=== PATIENT | female | born 1980 | race African-American/Black ===

== ENCOUNTER 2017-03-03 03:35 | Inpatient (IN) | payer OTHER, MEDICAID ==
[2017-03-03] VITALS (27 sets, daily range): BP systolic 109–141; BP diastolic 58–96
[~2017-03-03] VITALS: Ht 165.1 cm; Wt 63.0 kg
[2017-03-03] MEDS ORDERED: ACETAMINOPHEN 500MG TABLET ONE (03:51)
[2017-03-03] MEDS ORDERED: SODIUM CHLORIDE 0.9% 1,000 ML IV ONE (03:52)
[2017-03-03] MEDS ORDERED: ACETAMINOPHEN 325MG TABLET PO ONE (04:00)
[2017-03-03 04:18] LABS: HEMATOCRIT 35.9 % (36.0-48.0); HEMOGLOBIN 11.4 g/dL (12.0-16.0); MEAN CORPUSCULAR HEMOGLOBIN 22.4 pg (28.0-32.0); MEAN CORPUSCULAR VOLUME 70.5 fL (81.0-99.0); PLATELET 189 x1000/uL (130-400); RED CELL DISTRIBUTION WIDTH 14.4 % (11.6-14.6)
[2017-03-03 04:26] LABS: CARBON DIOXIDE 25 mEq/L (21-32); CHLORIDE 101 mEq/L (98-107)
[2017-03-03 04:34] LABS: CLARITY URINE CLOUDY (CLEAR); COLOR URINE DARK YELLOW (YELLOW); GLUCOSE URINE NEGATIVE (NEGATIVE); KETONES URINE 1+ (NEGATIVE); LEUKOCYTE ESTERASE URINE 2+ (NEGATIVE); NITRITE URINE NEGATIVE (NEGATIVE); OCCULT BLOOD URINE 1+ (NEGATIVE); PH URINE >=9.0 (4.5-8.0); PROTEIN URINE 2+ (NEGATIVE); SPECIFIC GRAVITY URINE 1.029 (1.005-1.030)
[2017-03-03] MEDS ORDERED: CEFTRIAXONE 2 G PREMIX 50 ML IV ONE (05:30)
[2017-03-03] MEDS ORDERED: VANCOMYCIN 1,250 MG in DEXT 5% WATER 250 ML IV SCH (06:30)
[2017-03-03 06:54] LABS: HCG SCREEN NEGATIVE
[2017-03-03] MEDS ORDERED: DIPHENHYDRAMINE 50MG/ML VIAL IV ONE (07:00)
[2017-03-03] MEDS ORDERED: IPRATROPIUM/ALBUTEROL 0.5-3(2.5)MG/3ML NEB INH PRN (09:30)
[2017-03-03] MEDS ORDERED: NICARDIPINE 50 MG in SODIUM CHLORIDE 0.9% 230 ML IV PRN (09:30)
[2017-03-03] MEDS ORDERED: DIPHENHYDRAMINE 50MG/ML VIAL IV PRN (09:30)
[2017-03-03] MEDS ORDERED: ACETAMINOPHEN 650MG SUPP PR PRN (09:30)
[2017-03-03] MEDS: ONDANSETRON HCL 4MG/2ML VIAL IV PRN (09:35)
[2017-03-03] MEDS: DEXT 5%/LACTATED RINGERS 1,000 ML IV SCH (09:45)
[2017-03-03] MEDS ORDERED: NICARDIPINE 100 MG in SODIUM CHLORIDE 0.9% 60 ML IV PRN (10:00)
[2017-03-03] MEDS ORDERED: CEFTRIAXONE 1 G PREMIX 50 ML IV SCH (10:30)
[2017-03-03] MEDS ORDERED: IOHEXOL-350 100 ML BOTTLE ONE (10:53)
[2017-03-03] MEDS ORDERED: SODIUM CHLORIDE 0.9% 10ML VIAL ONE (10:53)
[2017-03-03] MEDS: PHENYTOIN SODIUM 100MG/2ML VIAL IV SCH ×2 (13:27→21:56)
[2017-03-03] MEDS ORDERED: IPRATROPIUM BROMIDE (0.02%) 0.5MG/2.5ML NEB HHN PRN (21:00)
[2017-03-04] VITALS (25 sets, daily range): BP systolic 12–143; BP diastolic 33–91
[2017-03-04] MEDS: MORPHINE SULFATE 2 MG/ML CPJ (NOT FOR IM USE) IV PRN ×4 (03:18→22:25)
[2017-03-04] MEDS: DEXT 5%/LACTATED RINGERS 1,000 ML IV SCH (03:18)
[2017-03-04 05:51] LABS: HEMATOCRIT. 33.1 % (36.0-48.0); HEMOGLOBIN. 10.3 g/dL (12.0-16.0); MEAN CORPUSCULAR HEMOGLOBIN 21.9 pg (28.0-32.0); MEAN CORPUSCULAR VOLUME 70.3 fL (81.0-99.0); MEAN PLATELET VOLUME 9.9 fl (7.4-10.4); PLATELET 183 x1000/uL (130-400); RED CELL DISTRIBUTION WIDTH 14.5 % (11.6-14.6)
[2017-03-04] MEDS: PHENYTOIN SODIUM 100MG/2ML VIAL IV SCH (06:43)
[2017-03-04 06:45] LABS: CARBON DIOXIDE 28 mEq/L (21-32); CHLORIDE 106 mEq/L (98-107); PHOSPHORUS 2.4 mg/dL (2.5-4.9)
[2017-03-04] MEDS: CEFTRIAXONE 1 G PREMIX 50 ML IV SCH (09:17)
[2017-03-04] MEDS: PANTOPRAZOLE SODIUM 40 MG/VIAL IV SCH (09:17)
[2017-03-04] MEDS: ONDANSETRON HCL 4MG/2ML VIAL IV PRN (10:24)
[2017-03-04 11:51] LABS: *AMPHETAMINES SCREEN URINE NEGATIVE (NEGATIVE); *BARBITURATES SCREEN URINE NEGATIVE (NEGATIVE); *BENZODIAZEPINES SCREEN URINE NEGATIVE (NEGATIVE); *COCAINE SCREEN URINE NEGATIVE (NEGATIVE); METHADONE URINE SCREEN NEGATIVE (NEGATIVE); OPIATES URINE SCREEN NEGATIVE (NEGATIVE); PHENCYCLIDINE URINE SCREEN NEGATIVE (NEGATIVE)
[2017-03-04 11:58] LABS: CANNABINOID URINE SCREEN PRESUMTIVE POSITIVE (NEGATIVE)
[2017-03-04 12:04] LABS: ATYPICAL LYMPHOCYTES 1; PLATELET ESTIMATE NORMAL
[2017-03-04] MEDS: PHENYTOIN SODIUM EXTENDED 100MG CAPSULE PO SCH ×2 (15:12→21:01)
[2017-03-04] MEDS: HYDROCODONE/ACETAMINOPHEN 5/325MG TABLET PO PRN (18:12)
[2017-03-05] VITALS (13 sets, daily range): BP systolic 99–137; BP diastolic 40–89
[2017-03-05] MEDS: HYDROCODONE/ACETAMINOPHEN 5/325MG TABLET PO PRN ×3 (03:38→14:49)
[2017-03-05 05:45] LABS: HEMATOCRIT. 31.2 % (36.0-48.0); HEMOGLOBIN. 9.8 g/dL (12.0-16.0); MEAN CORPUSCULAR HEMOGLOBIN 21.9 pg (28.0-32.0); MEAN CORPUSCULAR VOLUME 69.6 fL (81.0-99.0); MEAN PLATELET VOLUME 9.9 fl (7.4-10.4); PLATELET 180 x1000/uL (130-400); RED BLOOD CELL COUNT 4.49 mill/uL (4.2-5.4); RED CELL DISTRIBUTION WIDTH 14.5 % (11.6-14.6)
[2017-03-05 05:53] LABS: CARBON DIOXIDE 28 mEq/L (21-32); CHLORIDE 101 mEq/L (98-107)
[2017-03-05] MEDS: PHENYTOIN SODIUM EXTENDED 100MG CAPSULE PO SCH ×3 (05:54→21:44)
[2017-03-05] MEDS: PANTOPRAZOLE SODIUM 40 MG/VIAL IV SCH (08:01)
[2017-03-05] MEDS: CEFTRIAXONE 1 G PREMIX 50 ML IV SCH (08:01)
[2017-03-05 08:13] LABS: ATYPICAL LYMPHOCYTES 1
[2017-03-05 08:14] LABS: PLATELET ESTIMATE NORMAL
[2017-03-05] MEDS ORDERED: FLUCONAZOLE 150MG TABLET PO SCH (15:00)
[2017-03-05 16:14] LABS: CLARITY URINE CLEAR (CLEAR); COLOR URINE DARK YELLOW (YELLOW); GLUCOSE URINE NEGATIVE (NEGATIVE); KETONES URINE 1+ (NEGATIVE); LEUKOCYTE ESTERASE URINE 1+ (NEGATIVE); NITRITE URINE NEGATIVE (NEGATIVE); OCCULT BLOOD URINE TRACE (NEGATIVE); PH URINE 6.5 (4.5-8.0); PROTEIN URINE 1+ (NEGATIVE); SPECIFIC GRAVITY URINE 1.024 (1.005-1.030)
[2017-03-05 16:28] LABS: *AMPHETAMINES SCREEN URINE NEGATIVE (NEGATIVE); *BARBITURATES SCREEN URINE NEGATIVE (NEGATIVE); *BENZODIAZEPINES SCREEN URINE NEGATIVE (NEGATIVE); *COCAINE SCREEN URINE NEGATIVE (NEGATIVE); METHADONE URINE SCREEN NEGATIVE (NEGATIVE); PHENCYCLIDINE URINE SCREEN NEGATIVE (NEGATIVE)
[2017-03-05 16:36] LABS: CANNABINOID URINE SCREEN PRESUMTIVE POSITIVE (NEGATIVE); OPIATES URINE SCREEN PRESUMTIVE POSITIVE (NEGATIVE)
[2017-03-05] MEDS ORDERED: PHENYTOIN SODIUM 800 MG in SODIUM CHLORIDE 0.9% 100 ML IV NR (18:00)
[2017-03-06 04:52] VITALS: BP 105/76
[2017-03-06] MEDS: HYDROCODONE/ACETAMINOPHEN 5/325MG TABLET PO PRN ×3 (06:37→22:26)
[2017-03-06] MEDS: PHENYTOIN SODIUM EXTENDED 100MG CAPSULE PO SCH ×3 (06:37→20:50)
[2017-03-06 07:23] LABS: CARBON DIOXIDE 27 mEq/L (21-32); CHLORIDE 102 mEq/L (98-107)
[2017-03-06 07:49] LABS: HEMATOCRIT. 33.4 % (36.0-48.0); HEMOGLOBIN. 10.5 g/dL (12.0-16.0); MEAN CORPUSCULAR VOLUME 69.8 fL (81.0-99.0); MEAN PLATELET VOLUME 9.8 fl (7.4-10.4); PLATELET 198 x1000/uL (130-400); RED BLOOD CELL COUNT 4.78 mill/uL (4.2-5.4); RED CELL DISTRIBUTION WIDTH 14.6 % (11.6-14.6)
[2017-03-06 07:50] VITALS: BP 114/87
[2017-03-06] MEDS: CEFTRIAXONE 1 G PREMIX 50 ML IV SCH (09:00)
[2017-03-06] MEDS: PANTOPRAZOLE SODIUM 40 MG/VIAL IV SCH (09:00)
[2017-03-06 12:00] VITALS: BP 115/80
[2017-03-06] MEDS: SODIUM CHLORIDE 0.9% 1,000 ML IV SCH (14:19)
[2017-03-06 16:20] VITALS: BP 115/80
[2017-03-06 20:00] VITALS: BP 108/73
[2017-03-07] VITALS (7 sets, daily range): BP systolic 107–120; BP diastolic 70–86
[2017-03-07] MEDS: SODIUM CHLORIDE 0.9% 1,000 ML IV SCH ×2 (05:44→13:48)
[2017-03-07] MEDS: HYDROCODONE/ACETAMINOPHEN 5/325MG TABLET PO PRN ×2 (05:45→18:13)
[2017-03-07] MEDS: PHENYTOIN SODIUM EXTENDED 100MG CAPSULE PO SCH ×2 (05:45→13:48)
[2017-03-07 06:59] LABS: BASOPHILS % 0.7 % (0.0-2.0); EOSINOPHILS % 2.2 % (0.0-5.0); HEMATOCRIT. 36.9 % (36.0-48.0); HEMOGLOBIN. 11.4 g/dL (12.0-16.0); MEAN CORPUSCULAR HEMOGLOBIN 21.7 pg (28.0-32.0); MEAN CORPUSCULAR VOLUME 70.3 fL (81.0-99.0); MEAN PLATELET VOLUME 9.5 fl (7.4-10.4); MONOCYTES % 14.6 % (2.0-8.0); NEUTROPHILS % 38.5 % (40.0-76.0); PLATELET 228 x1000/uL (130-400); RED BLOOD CELL COUNT 5.25 mill/uL (4.2-5.4); RED CELL DISTRIBUTION WIDTH 14.7 % (11.6-14.6)
[2017-03-07] MEDS ORDERED: OMEPRAZOLE 20MG CAPSULE EXTENDED RELEASE PO SCH (07:20)
[2017-03-07 07:21] LABS: CARBON DIOXIDE 25 mEq/L (21-32); CHLORIDE 101 mEq/L (98-107)
[2017-03-07] MEDS: CEFTRIAXONE 1 G PREMIX 50 ML IV SCH (09:11)
[2017-03-07 20:53] LABS: ATYPICAL LYMPHOCYTES 1; PLATELET ESTIMATE NORMAL
== END 2017-03-07 17:00 | disposition home or self-care (01) | DRG 85 ==
LOC: ER 03:41 → MICUSO 05:41 → ENRESERV 06:39 → EDBEDREQ 08:06 → EDBEDREQTM 08:36 → EDBEDREQ 08:36 → 6WST 03-05 09:26
PROVIDERS: ADMIT Family Medicine Adult Medicine; ATTEND Family Medicine Adult Medicine
DX: S06.6X0A Traumatic subarachnoid hemorrhage without loss of consciousness, initial encounter (principal); G92 Toxic encephalopathy; E43 Unspecified severe protein-calorie malnutrition; E87.1 Hypo-osmolality and hyponatremia; N39.0 Urinary tract infection, site not specified; F07.81 Postconcussional syndrome; D64.9 Anemia, unspecified; F12.90 Cannabis use, unspecified, uncomplicated; R73.9 Hyperglycemia, unspecified; G43.909 Migraine, unspecified, not intractable, without status migrainosus; F45.8 Other somatoform disorders; Z88.1 Allergy status to other antibiotic agents; W18.39XA Other fall on same level, initial encounter; Y93.89 Activity, other specified; Y92.89 Other specified places as the place of occurrence of the external cause; Y99.8 Other external cause status
CPT/HCPCS: 36415; 70450; 70496; 71010; 80048; 80076; 80185; 80305; 81001; 83036; 83735; 84100; 84443; 84703; 85025; 85027; 85379; 87040; 87086; 87106; 93005; 93306; 93880; 93970; 96361; 96365; 96375; 97112; 97116; 97162; 97535; 99291; A4216; C1893; C9113; G0482; J0696; J1165; J1200; J2270; J2405; J3370; J7030; J7050; J7060; J7121; Q9967

== ENCOUNTER 2017-08-27 03:36 | Emergency (ER) | payer OTHER, MEDICAID ==
[~2017-08-27] VITALS: Ht 165.1 cm; Wt 73.0 kg
[2017-08-27 04:10] VITALS: BP 145/95
== END 2017-08-27 09:18 | disposition left against medical advice (07) ==
LOC: ER 03:36
DX: R05 Cough (principal); Z53.21 Procedure and treatment not carried out due to patient leaving prior to being seen by health care provider
CPT/HCPCS: 81025

== ENCOUNTER 2017-08-29 01:15 | Emergency (ER) | payer OTHER, MEDICAID ==
[~2017-08-29] VITALS: Ht 165.1 cm; Wt 64.6 kg
[2017-08-29 04:02] VITALS: BP 133/81
[2017-08-29] MEDS ORDERED: PROMETHAZINE/DEXTROMETHORPHAN 6.25-15MG/5ML BOTTLE 120ML PO PRN (05:00)
== END 2017-08-29 05:13 | disposition home or self-care (01) ==
LOC: ER 01:15
DX: J40 Bronchitis, not specified as acute or chronic (principal); D64.9 Anemia, unspecified; M54.6 Pain in thoracic spine
CPT/HCPCS: 71045; 81025; 99283